=== PATIENT | female | born 1975 | race Caucasian/White ===

== ENCOUNTER 2017-09-13 17:36 | Emergency (ER) | payer SELFPAY ==
[~2017-09-13] VITALS: Ht 154.9 cm; Wt 83.1 kg
[2017-09-13 17:46] VITALS: Ht 154.9 cm; Wt 83.1 kg
[2017-09-13 18:41] VITALS: BP 141/70
== END 2017-09-13 18:41 | disposition home or self-care (01) ==
LOC: ED 17:36
DX: S16.1XXA Strain of muscle, fascia and tendon at neck level, initial encounter (principal); I10 Essential (primary) hypertension; E11.9 Type 2 diabetes mellitus without complications; V49.9XXA Car occupant (driver) (passenger) injured in unspecified traffic accident, initial encounter; Y93.89 Activity, other specified; Y99.8 Other external cause status; Y92.89 Other specified places as the place of occurrence of the external cause

== ENCOUNTER 2018-04-06 14:56 | Emergency (ER) | payer SELFPAY ==
[~2018-04-06] VITALS: Ht 157.5 cm; Wt 78.5 kg
[2018-04-06 15:00] VITALS: Ht 157.5 cm; Wt 78.5 kg
[2018-04-06 17:18] VITALS: BP 129/54
== END 2018-04-06 17:18 | disposition home or self-care (01) ==
LOC: ED 14:56
DX: R07.89 Other chest pain (principal); I10 Essential (primary) hypertension; Z90.49 Acquired absence of other specified parts of digestive tract; E11.9 Type 2 diabetes mellitus without complications